=== PATIENT | female | born 1950 | race American Indian/Alaskan Native ===

== ENCOUNTER 2018-01-17 06:11 | Day surgery (SDC) | payer MEDICARE ==
[~2018-01-17 06:11] MED LIST: NACL 0.9% 1000 ML 1,000 ML IV SCH; VANCOMYCIN/NS 1 GM/250 ML 1 GM/250 ML BAG IV NR
[2018-01-17 07:53] LABS: Basophils % (Auto) 0.9 % (0.0-1.8); Eosinophils # (Auto) 0.2 K/mm3 (0.0-0.4); Eosinophils % (Auto) 2.8 % (0.0-4.3); Hematocrit 33.2 % (30.3-42.9); Hemoglobin 11.3 gm/dl (10.1-14.3); Lymphocytes # (Auto) 1.9 K/mm3 (1.2-5.4); Mean Corpuscular HGB Conc 34 % (30-34); Mean Corpuscular Hemoglobin 30 pg (28-32); Mean Corpuscular Volume 89 fl (79-97); Monocytes # (Auto) 0.6 K/mm3 (0.0-0.8); Monocytes % (Auto) 10.8 % (0.0-7.3); Platelet Count 254 K/mm3 (140-440); Red Blood Count 3.72 M/mm3 (3.65-5.03); Red Cell Distribution Width 13.1 % (13.2-15.2)
[2018-01-17 08:05] LABS: INR 0.93 (0.87-1.13)
[2018-01-17 08:08] LABS: BUN/Creatinine Ratio 20; Blood Urea Nitrogen 18 mg/dL (7-17); Calcium 9.1 mg/dL (8.4-10.2); Hemolysis Index 7
[2018-01-17] MEDS ORDERED: HEPARIN 10,000 UNITS/10 ML ONE (08:11)
[2018-01-17] MEDS: BENADRYL ONE ×2 (08:45→08:52)
[2018-01-17] MEDS: XYLOCAINE 2% INFILTRATI ONE ×2 (08:45→09:06)
[2018-01-17] MEDS: VERSED ONE ×4 (08:45→09:10)
[2018-01-17] MEDS: SUBLIMAZE ONE ×3 (08:47→09:10)
[2018-01-17] MEDS ORDERED: NACL 0.9% 500 ML 500 ML ONE (08:55)
[2018-01-17] MEDS ORDERED: XYLOCAINE 2% INFILTRATI ONE (09:12)
--- NOTE | 2018-01-17 09:49 | Short Stay Summary ---
Short Stay Documentation Date of service: 01/17/18 - History H&P: obtained from office - Allergies and Medications Current Medications: Allergies cefazolin sodium [From Ancef] Allergy (Verified 01/17/18 07:16) Unknown Blood counts drop cephalexin monohydrate [From Keflex] Allergy (Verified 10/21/15 07:34) Unknown chlorhexidine [From Hibiclens] Allergy (Verified 01/17/18 07:18) Unknown Blisters Iodinated Contrast- Oral and IV Dye [Iodinated Contrast Media - IV Dye] Allergy (Verified 10/21/15 07:34) Hives/ BREATHING PROBLEMS Penicillins Allergy (Verified 10/21/15 07:34) Hives Sulfa (Sulfonamide Antibiotics) Allergy (Verified 01/17/18 07:23) Hives warfarin [From Coumadin] Allergy (Verified 01/17/18 07:17) Unknown Platelets dropped oxycodone HCl [From OxyContin] Adverse Reaction (Severe, Verified 10/21/15 07:34 ) PT STATES THAT SHE WENT INTO A COMA iodine Adverse Reaction (Verified 10/21/15 07:34) Unknown BLISTER ON SKIN tegaderm dressing Adverse Reaction (Uncoded 01/17/18 08:08) Itching blisters Home Medications Medication Instructions Recorded Confirmed Last Taken Type Albuterol Sulfate [Ventolin HFA] 1 puff INHALATION PRN PRN 10/21/15 01/17/18 History 1 puff Aliskiren/Hydrochlorothiazide 1 each PO QHS 10/21/15 01/17/18 01/16/18 History [Tekturna Hct 300-25 mg Tablet] Doxazosin [Cardura] 1.5 tab PO QHS 10/21/15 01/17/18 01/16/18 History HYDROcodone/APAP 5-325 [[place] 1 each PO Q6HR PRN #18 tablet 10/21/15 01/17/18 Unknown Rx 5/325] Loratadine [Claritin] 10 mg PO QHS 10/21/15 01/17/18 01/16/18 History Montelukast Sodium [Singulair] 4 mg PO QHS 10/21/15 01/17/18 01/16/18 History Omeprazole [PriLOSEC] 40 mg PO QHS 10/21/15 01/17/18 01/16/18 History Oxybutynin Chloride [Ditropan Xl] 5 mg PO QHS 10/21/15 01/17/18 01/16/18 History Potassium Chloride [K-Dur] 20 meq PO QDAY 01/17/18 01/17/18 01/16/18 History metFORMIN [Glucophage] 500 mg PO QPM 01/17/18 01/17/18 01/16/18 History Active Medications Sodium Chloride (Nacl 0.9% 1000 Ml) 1,000 mls @ 75 mls/hr IV DIRECT RUPALI Sodium Chloride (Nacl 0.9% 1000 Ml) 1,000 mls @ 42 mls/hr IV DIRECT RUPALI Vancomycin HCl (Vancomycin/Ns 1 Gm/250 Ml) 1 gm in 250 mls @ 166.667 mls/hr IV PREOP NR; Protocol Stop: 01/17/18 23:00 Last Admin: 01/17/18 09:06 Dose: 250 mls - Brief post op/procedure progress note Date of procedure: 01/17/18 Pre-op diagnosis: need IV access Post-op diagnosis: same Procedure: 1. US guided access of left UE basilic vein 2. Left arm venogram 3. US puncture of RIJ 4. RIJ Christianson catheter 4. Fluoro guidance Anesthesia: local (sedation) Findings: occluded left subclavian system Surgeon: AMANDA SAHU Estimated blood loss: minimal Pathology: none - Disposition Condition at discharge: Good Disposition: DC-01 TO HOME OR SELFCARE Short Stay Discharge Plan Activity: advance as tolerated Diet: advance as tolerated Wound: per your surgeon's advice Follow up with: AMANDA SAHU MD [Staff Physician] - 14 Days
--- NOTE | 2018-01-17 09:54 | Operative Report ---
Operative Report Operative Report: Date of procedure: 01/17/2018 Preoperative diagnosis: Need long-term hemodialysis access Postoperative diagnosis same Procedure: 1. US guided access of left UE basilic vein 2. Left arm venogram 3. US puncture of RIJ 4. RIJ Christianson catheter 4. Fluoro guidance Surgeon: Nalini Anesthesia: Local with IV sedation Estimated blood loss: Minimal Operative indication: Patient is a 67-year-old woman who needs IV access for orthopedic surgery. I discussed the situation in detail with the patient had a time. It was very likely that the subclavian vein could not be traversed as it had not been able to the past. However her surgery is on her right arm so that' s not an opportunity to place a catheter as well. I explained to her in detail that if we could not get him on the left that I would go to the right internal jugular vein. Procedure findings: Completely occluded left central vein system. Procedure description: The patient was placed on the table supine position and given appropriate anesthesia. The area over the left arm was prepped with ChloraPrep solution and draped in usual sterile fashion. Real-time ultrasound guidance was used to identify branch of the basilic vein. This was cannulated with micropuncture technique and a 5 [place] sheath was placed. Ultimately a vertebral catheter was placed. The patient was given intravenous sedation and also was given Benadryl and Solu-Medrol through this catheter. X-ray contrast was then injected and showed complete occlusion of the left subclavian vein with multiple collaterals filling into the central circulation. The internal jugular appeared to be completely occluded on the left side. The innominate vein appeared to be completely occluded on the left side. There was no opportunity to place a PICC line on this side. The area of the right neck and shoulder was then prepped with ChloraPrep solution and draped in usual sterile fashion. As on the left, 2% lidocaine plain was used for local anesthesia. The area over the jugular vein was identified with the ultrasound and then cannulated using micropuncture technique. Small incisions were made for the appropriate tunneling of the catheter. Through the micropuncture sheath a Amplatzer wire was passed. The dilator and insertion sheath was passed over the guidewire into the central circulation. The catheter was cut to the appropriate length and then passed into the central circulation. It had already been tunneled through the chest site. The catheter was slightly longer than expected I pulled it back as much as possible but the cuff came out of the skin. I had to extend the tunnel by about 1-1/2 cm to accommodate the cuff. There is excellent flow from the catheter and it flushed easily. Fluoroscopic images revealed it was in the right atrium. Closure was done with 3-0 Ethibond on the skin at the cuff site. The insertion site was closed with 4-0 Monocryl. Sterile dressings were applied. The catheters in the left lower removed and pressure was held and no bleeding was identified. The patient tolerated procedure. She was taken from the cardiac catheterization lab in stable condition.
[2018-01-17 10:39] VITALS: BP 132/77
== END 2018-01-17 10:50 | disposition home or self-care (01) ==
LOC: CATHLABREC 06:11
PROVIDERS: ATTEND Surgery Vascular Surgery
DX: M19.011 Primary osteoarthritis, right shoulder (principal); J45.909 Unspecified asthma, uncomplicated; K50.90 Crohn's disease, unspecified, without complications; I10 Essential (primary) hypertension; M10.9 Gout, unspecified; E78.5 Hyperlipidemia, unspecified; Z88.8 Allergy status to other drugs, medicaments and biological substances; Z88.2 Allergy status to sulfonamides; Z91.041 Radiographic dye allergy status; Z88.5 Allergy status to narcotic agent; Z91.048 Other nonmedicinal substance allergy status; Z88.1 Allergy status to other antibiotic agents; Z90.710 Acquired absence of both cervix and uterus; Z79.01 Long term (current) use of anticoagulants; Z86.718 Personal history of other venous thrombosis and embolism
CPT/HCPCS: 36415; 36558; 77001; 80048; 85025; 85610; 85730; C1751; C1752; C1769; C1894; J1200; J1644; J2250; J2930; J3010; J3370; J7040; Q9967